=== PATIENT | female | born 1935 | race Caucasian/White ===

== ENCOUNTER → 2017-02-06 | Outpatient (CLI) | payer MEDICARE, OTHER ==
--- NOTE | ~2017-02-06 | CR63 ---
[facility] A Service of [facility] & [facility] RADIOLOGY TEXT RESULTS PATIENT: KRYSTAL BUSBY LOCATION: [facility] : 33 UNIT #: [id number] AGE: [address]: Monica Lima MD SEX: F ORDER DR: [id number] [facility] [address] [place], [place] [address] [id number] O MR#: [id number] Acc #: [id number] NAME: KRYSTAL BUSBY : 1935 SEX: F STUDY DATE/TIME: 02/06/2017 15:13 UNIT: [facility] ROOM: STUDY DESCRIPTION: CR Chest 2 View Attending Physician: Monica Lima M.D. Ordering Physician: Monica Lima M.D. Primary Care Physician: Monica Lima M.D. MEDICAL IMAGING REPORT This report is preliminary unless electronic signature is present EXAM Two-view chest, 02/06/2017. HISTORY 81-year-old female with cough for several months. Shortness of breath. Essential hypertension. COMPARISON None FINDINGS 2 views of the chest demonstrate clear lungs. No pleural effusion or pneumothorax. Heart size and mediastinum are within normal limits. Pulmonary vasculature is unremarkable. IMPRESSION No acute cardiopulmonary findings. Dictated by... Thierno Shea M.D. THIS IS AN ELECTRONICALLY VERIFIED REPORT Thierno Shea M.D. at 02/07/2017 6:38 PM YEHUDA/pat TD: 02/06/2017 16:41 JOB #: [id number] MEDICAL IMAGING REPORT Page 1 of 1 COPY
== END | disposition home or self-care (01) ==
LOC: CRAD 14:47
DX: R05 Cough (principal); I10 Essential (primary) hypertension
CPT/HCPCS: 71020